=== PATIENT | female | born 1995 | race Asian ===

== ENCOUNTER 2023-11-20 19:10 | Emergency (ER) | payer SELFPAY ==
[2023-11-20 19:18] VITALS: BP 118/80; PULSE 87; RESP 18; TEMP 36.6; O2SAT 99; BMI 26.5
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
[2023-11-20] MEDS: bacitracin ointment Pkt 1 EACH TOPICAL (22:41)
== END 2023-11-20 22:41 | disposition home or self-care (01) ==
PROVIDERS: Emergency Provider Nurse Practitioner Family
DX: S13.9XXA Sprain of joints and ligaments of unspecified parts of neck, initial encounter (principal); S63.502A Unspecified sprain of left wrist, initial encounter; S63.501A Unspecified sprain of right wrist, initial encounter; S00.81XA Abrasion of other part of head, initial encounter; V89.2XXA Person injured in unspecified motor-vehicle accident, traffic, initial encounter
CPT/HCPCS: 70150; 71045; 72040; 73110; 99284